=== PATIENT | female | born 1955 | race Hispanic/Latino ===

== ENCOUNTER → 2020-08-13 | Outpatient (CLI) | payer MEDICARE ==
--- NOTE | 2020-08-13 16:33 | Diagnostic Imaging Report ---
TECHNIQUE: Magnetic resonance imaging of the LEFT KNEE was performed WITHOUT injected contrast. HISTORY: Left knee pain COMPARISON: None available. FINDINGS: LIGAMENTS AND TENDONS: ACL: Intact PCL: Intact Collateral ligaments: Increased signal surrounding the medial collateral ligament with partial disruption of deep fibers, especially near the femoral attachment. Lateral collateral ligament is intact and unremarkable. Iliotibial band: Unremarkable Popliteal tendon: Intact Extensor mechanism: Intact JOINT: Menisci: Medial: Intact Lateral: Intact Articular Cartilage: Medial Compartment: No focal defect. Lateral Compartment: No focal defect. Patellofemoral Compartment: High-grade cartilage loss along the medial patellar facet and low-grade cartilage loss along the lateral patellar facet. Joint Fluid: The amount of fluid within the joint is within physiologic limits. BONE: No acute fracture. Subtle reactive bone marrow edema along the medial femoral condyle near the MCL attachment. No infiltrative replacing bone marrow signal abnormality. SOFT TISSUES: Otherwise, unremarkable. IMPRESSION: 1. Partial tear of the medial collateral ligament with surrounding reactive edema. 2. High-grade cartilage loss along the medial patellar facet. Signed by: Dr. Ki Pedro M.D. on 08/13/2020 4:30 PM
== END ==
LOC: MRI 14:09
PROVIDERS: ATTEND Internal Medicine
DX: M25.562 Pain in left knee (principal)